=== PATIENT | female | born 1965 | race Caucasian/White ===

== ENCOUNTER 2016-12-19 11:08 | Observation (INO) | payer OTHER ==
[2016-12-19] MEDS ORDERED: NS 1,000 ML IV ONE (11:19)
[2016-12-19 11:45] LABS: % IMMATURE GRANULYOCYTES 0.2 % (0.0-1.1); ABSOLUTE IMMATURE GRANULOCYTES 0.01 10^3/uL (0.00-0.10); ADD DIFF? NO; ADD MORPH? NO; ADD SCAN? NO; ATYPICAL LYMPHOCYTE FLAG 20 (0-99); FRAGMENT RBC FLAG 0 (0-99); HEMATOCRIT 45.3 % (38.0-47.0); HEMOGLOBIN 15.2 g/dL (12.6-16.3); LEFT SHIFT FLG 0 (0-99); LIPEMIA HEMOLYSIS FLAG 80 (0-99); MEAN CELL HEMOGLOBIN 29.2 pg (27.9-34.1); MEAN CELL HEMOGLOBIN CONCENTR. 33.6 g/dL (32.4-36.7); MEAN CELL VOLUME 87.1 fL (81.5-99.8); MEAN PLATELET VOLUME 8.9 fL (8.7-11.7); PLATELET CLUMPS FLAG 10 (0-99); PLATELET COUNT 304 10^3/uL (150-400); RED CELL DISTRIBUTION WIDTH 12.3 % (11.5-15.2)
--- NOTE | 2016-12-19 11:46 | CPEKG ---
Heart Rate: 55 RR Interval: 1091 P-R Interval: 168 QRSD Interval: 88 QT Interval: 440 QTC Interval: 421 P Lexa: 77 QRS Lexa: 59 T Wave Lexa: 75 EKG Severity - NORMAL ECG - EKG Impression: SINUS RHYTHM Electronically Signed By: Azael Kelly 20-Dec-2016 15:03:24
[2016-12-19 12:06] LABS: ANION GAP 14 mEq/L (8-16); CALCIUM 9.2 mg/dL (8.5-10.4); CARBON DIOXIDE 27 mEq/l (22-31); CHLORIDE 103 mEq/L (97-110); CREATININE 0.8 mg/dL (0.6-1.0); GLOMERULAR FILTRATION RATE > 60; GLUCOSE 84 mg/dL (70-100); MAGNESIUM 1.9 mg/dL (1.6-2.3); POTASSIUM 4.2 mEq/L (3.5-5.2); SODIUM 144 mEq/L (134-144)
[2016-12-19] MEDS ORDERED: ROCURONIUM 100 MG/10 ML VIAL ONE (12:07)
[2016-12-19] MEDS ORDERED: fentaNYL 100 MCG/2 ML INJ ONE ×2 (12:08→15:12)
[2016-12-19] MEDS ORDERED: PROPOFOL/EMULSION 500 MG/50 ML BOTTLE IV ONE (12:08)
[2016-12-19 12:11] LABS: INR 0.99 (0.83-1.16)
[2016-12-19 12:12] LABS: APTT 28.9 SEC (23.0-38.0)
[2016-12-19] MEDS ORDERED: LIDOCAINE 1% 30 ML SDV ONE (12:27)
[2016-12-19] MEDS ORDERED: ISOPROTERENOL HCL 0.2 MG/ML 5ML AMP ONE (12:27)
[2016-12-19] MEDS ORDERED: HEPARIN 10,000 UNIT/10 ML MDV ONE (12:27)
[2016-12-19] MEDS ORDERED: BUPIVACAINE 0.5% 30 ML SDV ONE (12:28)
[2016-12-19] MEDS ORDERED: MIDAZOLAM 2 MG/2 ML VIAL ONE (12:28)
[2016-12-19] MEDS ORDERED: DEXAMETHASONE 4 MG/ML VIAL ONE (14:10)
[2016-12-19] MEDS ORDERED: PROPOFOL 200 MG/20 ML VIAL ONE (14:18)
[2016-12-19] MEDS ORDERED: NEOSTIGMINE METHYLSULFATE 5 MG/5 ML SYR ONE (14:28)
[2016-12-19] MEDS ORDERED: GLYCOPYRROLATE 0.2 MG/1 ML VIAL ONE ×2 (14:28→14:31)
[2016-12-19] MEDS ORDERED: ONDANSETRON 4 MG/2 ML VIAL ONE (14:37)
--- NOTE | 2016-12-19 15:07 | CPEKG ---
Heart Rate: 61 RR Interval: 984 P-R Interval: 192 QRSD Interval: 92 QT Interval: 448 QTC Interval: 452 P Oakman: 82 QRS Oakman: 45 T Wave Oakman: 71 EKG Severity - NORMAL ECG - EKG Impression: SINUS RHYTHM Electronically Signed By: Azael Kelly 20-Dec-2016 15:03:18
[2016-12-19] MEDS ORDERED: ATROPINE SULFATE 1 MG/10 ML SYR ONE (15:10)
[2016-12-19] MEDS ORDERED: ONDANSETRON 4 MG/2 ML VIAL IVP PRN (15:10)
[2016-12-19] MEDS ORDERED: ACETAMINOPHEN 325 MG TAB PO PRN (15:10)
[2016-12-19] MEDS ORDERED: OXYCODONE/APAP 5/325 TAB PO PRN (15:10)
[2016-12-19 15:35] LABS: ANION GAP 9 mEq/L (8-16); CALCIUM 8.4 mg/dL (8.5-10.4); CARBON DIOXIDE 26 mEq/l (22-31); CHLORIDE 106 mEq/L (97-110); CREATININE 0.8 mg/dL (0.6-1.0); GLOMERULAR FILTRATION RATE > 60; GLUCOSE 100 mg/dL (70-100); MAGNESIUM 1.8 mg/dL (1.6-2.3); POTASSIUM 3.5 mEq/L (3.5-5.2); SODIUM 141 mEq/L (134-144)
[2016-12-20 05:08] LABS: % IMMATURE GRANULYOCYTES 0.3 % (0.0-1.1); ABSOLUTE IMMATURE GRANULOCYTES 0.02 10^3/uL (0.00-0.10); ADD DIFF? NO; ADD MORPH? NO; ADD SCAN? NO; ATYPICAL LYMPHOCYTE FLAG 10 (0-99); FRAGMENT RBC FLAG 0 (0-99); HEMATOCRIT 41.6 % (38.0-47.0); HEMOGLOBIN 13.9 g/dL (12.6-16.3); LEFT SHIFT FLG 0 (0-99); LIPEMIA HEMOLYSIS FLAG 80 (0-99); MEAN CELL HEMOGLOBIN 28.7 pg (27.9-34.1); MEAN CELL HEMOGLOBIN CONCENTR. 33.4 g/dL (32.4-36.7); MEAN CELL VOLUME 85.8 fL (81.5-99.8); MEAN PLATELET VOLUME 9.1 fL (8.7-11.7); PLATELET CLUMPS FLAG 0 (0-99); PLATELET COUNT 316 10^3/uL (150-400); RED BLOOD CELL COUNT 4.85 10^6/uL (4.18-5.33); RED CELL DISTRIBUTION WIDTH 12.2 % (11.5-15.2)
[2016-12-20 05:09] VITALS: TEMP 98.1
[2016-12-20 05:12] LABS: INR 1.01 (0.83-1.16); PROTIME(PATIENT) 13.2 SEC (12.0-15.0)
[2016-12-20 05:32] LABS: ANION GAP 7 mEq/L (8-16); CALCIUM 9.1 mg/dL (8.5-10.4); CARBON DIOXIDE 27 mEq/l (22-31); CHLORIDE 105 mEq/L (97-110); CREATININE 0.7 mg/dL (0.6-1.0); GLOMERULAR FILTRATION RATE > 60; GLUCOSE 112 mg/dL (70-100); POTASSIUM 4.6 mEq/L (3.5-5.2); SODIUM 139 mEq/L (134-144)
[2016-12-20 05:43] LABS: CREATINE KINASE-MB FRACTION 1.37 ng/mL (0-3.19)
[2016-12-20 07:46] VITALS: BP 106/53; PULSE 55; RESP 20; O2SAT 88
[2016-12-20] MEDS ORDERED: ASPIRIN EC 325 MG TAB PO SCH (09:00)
[2016-12-20] MEDS ORDERED: SERTRALINE HCL 25 MG TAB PO SCH (09:00)
--- NOTE | 2016-12-20 09:10 | CPEKG ---
Heart Rate: 63 RR Interval: 952 P-R Interval: 156 QRSD Interval: 88 QT Interval: 424 QTC Interval: 435 P Alexander: 72 QRS Alexander: 58 T Wave Alexander: 80 EKG Severity - ABNORMAL ECG - EKG Impression: SINUS RHYTHM EKG Impression: NONSPECIFIC T ABNORMALITIES, LATERAL LEADS Electronically Signed By: Azael Kelly 20-Dec-2016 15:03:13
--- NOTE | 2016-12-20 11:48 | ECHO ---
[id number] + + [id number] : : [place] [id number] : : [phone] + Adult Echocardiographic Report + ------+ :Name: NATALYA ORDOÑEZissacrichard Date: 12/20/2016 08:32 AM : : Hospital Admission Number: [id number] Jeramieo n: 209: :: 1965 Gender: Female Height: 69 in : :Age: 51 yrs Race: WH Weight: 197 lb : :Reason For Study: Post EP : : BSA: 2.1 meters 2 : + ------+ MMode/2D Measurements & Calculations IVSd: 1.1 cm RVDd: 3.4 cm FS: 35.5 % LVOT diam: 2.3 cm LVPWd: 1.1 cm LVIDd: 4.1 cm EDV(Teich): LVOT area: LVIDs: 2.7 cm 76.1 ml 4.1 cm2 ESV(Teich): 26.4 ml EF(Teich): 65.3 % LVLd ap4: 8.7 cm SV(MOD-sp4): EDV(MOD-sp4): 89.0 ml 120.0 ml LVLs ap4: 6.8 cm ESV(MOD-sp4): 31.0 ml EF(MOD-sp4): 74.2 % Normal Measurement Values: + + :LVIDd (3.5-5.7cm) IVSd (0.6-1.1cm) LVPWd (0.6-1.1cm) Aortic Root (2.0-3.7cm)Left Atrium (1.5-4.0cm): :LV Vol(d) (76-115ml) LV Vol(s) (29-48ml) Ejec Fraction (50-65%)PV Matheus (0.6- 1.2m/s) TV Matheus (0.4-1.0m/s) : :MV E Matheus (0.8-1.0m/s)MV A Matheus (0.3-1.0m/s)LVOT Matheus (0.7-1.2m/s) Asc Ao Matheus ( 0.9-1.8m/s) : + + Doppler Measurements & Calculations MV E max matheus: MV V2 max: Ao mean PG: LV V1 mean P.7 cm/sec 105.2 cm/sec 4.8 mmHg 3.0 mmHg MV A max matheus: MV max PG: Ao V2 mean: LV V1 mean: 80.0 cm/sec 4.4 mmHg 101.2 cm/sec 79.1 cm/sec MV E/A: 1.2 MV V2 mean: Ao V2 VTI: 34.2 cm LV V1 VTI: 31.8 cm MV dec time: 59.5 cm/sec ISAAC(I,D): 3.8 cm2 0.17 sec MV mean P.7 mmHg MV V2 VTI: 31.0 cm MVA(VTI): 4.2 cm2 SV(LVOT): 131.6 ml PA V2 max: TR max matheus: 109.9 cm/sec 164.0 cm/sec PA max PG: TR max P.8 mmHg 10.8 mmHg RAP systole: 10.0 mmHg RVSP(TR): 20.8 mmHg Left Ventricle The left ventricle is normal in size and function. There is normal left ventricular wall thickness. Ejection Fraction = 65-70%. No regional wall motion abnormalities noted. Right Ventricle The right ventricle is normal in size and function. Atria The left atrial size is normal. Right atrial size is normal. The interatrial septum is intact with no evidence for an atrial septal defect. Mitral Valve The mitral valve is normal in structure and function. There is no mitral valve stenosis. There is trace mitral regurgitation. Tricuspid Valve The tricuspid valve is normal in structure and function. There is no tricuspid stenosis. There is trace tricuspid regurgitation. Right ventricular systolic pressure is normal. Aortic Valve The aortic valve is normal in structure and function. There is no aortic stenosis. There is no aortic insufficiency. Pulmonic Valve The pulmonic valve is normal in structure and function. There is no pulmonic valvular stenosis. There is no pulmonic valvular regurgitation. Great Vessels The aortic root is normal size. Pericardium/Pleural There is no pericardial effusion. There is a fat pad seen. Conclusion A complete two-dimensional transthoracic echocardiogram was performed (2D, M-mode, Doppler and color flow Doppler). The study was technically difficult. The left ventricle is normal in size and function. Ejection Fraction = 65-70%. The right ventricle is normal in size and function. There is trace mitral regurgitation. There is trace tricuspid regurgitation. Right ventricular systolic pressure is normal. The aortic valve is normal in structure and function. There is no pericardial effusion. Final Reading Physician: Britt Gauthier signed on 12/20/2016 11:48 AM Ordering Physician: Catalino Olguin Performed By: Marisol Fields
--- NOTE | 2016-12-20 13:46 | GDS ---
[f rep st] DISCHARGE SUMMARY DISCHARGE DIAGNOSIS: Supraventricular tachycardia, status post atrioventricular bee reentrant tach ycardia ablation this admission. PROCEDURES: 1. Electrophysiologic study with atrioventricular bee reentrant tachycardia ablation. 2. Echocardiogram, which showed ejection fraction of 65% to 70%. Normal left ventricular size and f unction. Normal right ventricular size and function. Trace mitral regurgitation, trace tricuspid re gurgitation. BRIEF HISTORY: Please see dictated H and P from our office for complete details. In brief, the savannah ent is a 51-year-old female who was seen in the emergency department on 11/21/2016. She was found to have episodes of SVT with lightheadedness and dizziness. Options were reviewed, and patient was agr eeable to SVT ablation, which was performed on 12/19/2016. On day of discharge, the patient denies a ny chest pain or groin pain. She has noted some mild inconsistent shortness of breath. PHYSICAL EXAMINATION: VITAL SIGNS: On day of discharge, blood pressure 106/53, heart rate 55, respi rations 20, O2 saturation of 95% on room air, temp of 98.1 degrees Fahrenheit. GENERAL: She is a pl easant female, in no apparent distress. EYES: PERRL. HEART: Regular rate and rhythm. LUNGS: Livan ar. ABDOMEN: Right groin site without bruit or ecchymosis. RESULTS PENDING: None. DIET: Per previous. ACTIVITY: Groin precautions were reviewed. DISCHARGE MEDICATIONS: She is to be on aspirin 325 mg p.o. daily for 1 month. She may continue her home Zoloft. Please see med reconciliation for complete details. FOLLOWUP INSTRUCTIONS: Follow up with Dr. Olguin in 1 month's time. /[id number]/MODL
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
== END 2016-12-20 10:18 | disposition home or self-care (01) ==
LOC: FCATH 11:08 → F2W 15:02
PROVIDERS: ADMIT Internal Medicine Cardiovascular Disease; ATTEND Internal Medicine Cardiovascular Disease
PROC: 02K83ZZ Map Conduction Mechanism, Percutaneous Approach (ICD-10-PCS; principal; 2016-12-19)
PROC: 02563ZZ Destruction of Right Atrium, Percutaneous Approach (ICD-10-PCS; principal; 2016-12-19)
DX: I47.1 Supraventricular tachycardia (principal)
CPT/HCPCS: 93005; 93306; 93613; 93621; 93623; 93653; C1732; G0378; C1730; C1893; J0461; J1100; J1644; J2250; J2405; J2704; J2710; J3010